=== PATIENT | male | born 1935 | race Caucasian/White ===

== ENCOUNTER 2017-09-08 02:50 | Inpatient (IN) ==
[2017-09-08 03:18] VITALS: RESP 18
--- NOTE | 2017-09-08 04:44 | ED ---
HPI General Chief complaint: Head Injury Stated complaint: Flag Trans/Evac Time Seen by Provider: 09/08/17 02:54 History of Present Illness HPI narrative: Patient is a 82-year-old male who fell today and has facial fractures they are reporting that he is LeFort's with nasal fractures as well as mandible fractures maxillary fractures transferred from an outside hospital Dr. Kumar the trauma surgeon spoke to them and they accepted the transfer patient is here he is only complaining of pain but refuses pain medication his tetanus is up-to-date reviewing the literature he did not get Ancef at the other hospital I will give him Ancef I will do the preop labs and admit him to Dr. HAQUE of the trauma surgery for ENT or oral maxillofacial surgery in the a.m. Related Data Home Medications Medication Instructions Recorded Confirmed pravastatin 20 mg PO DAILY 09/08/17 09/08/17 Previous Rx's Medication Instructions Recorded acetaminophen [Tylenol] 650 mg PO Q4H PRN #30 cap 09/08/17 chlorhexidine gluconate 15 ml PO BID #1 bottle 09/08/17 Allergies Allergy/AdvReac Type Severity Reaction Status Date / Time No Known Allergies Allergy Unverified 09/08/17 03:09 Review of Systems Except as stated in HPI: all other systems reviewed are negative [facility] Medical History Medical History C1 cervical fracture (Acute) Coronary artery disease (Acute) Hypertension (Acute) Social History Social History Substance History: No History of Abuse Second Hand Smoke Exposure: No Smoking Status: Never smoker How Often Do You Have a Drink Containing Alcohol: Monthly or less Recent Travel in [facility] within the Last 8 Weeks: No Recent Out of Country Travel within the Last 8 Weeks: No Immunization History Tetanus Immunization: <5 Years Exam Narrative Exam Narrative: GENERAL: SKIN: Warm and dry. HEAD: Trauma to face swollen left periobital area and nose with dried blood bilateral NAres ENT: blood and swollen nose bridge and nares dried blood bilateral EYES Extraoccular EOMI mild injected left sclera CARDIOVASCULAR: Regular rate and rhythm. RESPIRATORY: No accessory muscle use. Clear to auscultation. Breath sounds equal bilaterally. GASTROINTESTINAL: Abdomen soft, non-tender, nondistended. Hepatic and splenic margins not palpable. MUSCULOSKELETAL: Extremities without clubbing, cyanosis, or edema. No obvious deformities. NEUROLOGICAL: Awake and alert. No obvious cranial nerve deficits. Motor grossly within normal limits. Five out of 5 muscle strength in the arms and legs. Normal speech. PSYCHIATRIC: Appropriate mood and affect; insight and judgment normal. Course Initial Documented Vital Signs Temperature 98.2 F 09/08/17 02:59 Respiratory Rate 18 09/08/17 02:59 Blood Pressure 180/71 H 09/08/17 02:59 Pulse Oximetry 97 09/08/17 02:59 Last Documented Vital Signs Temperature 97.9 F 09/08/17 07:47 Pulse Rate 84 09/08/17 07:47 Respiratory Rate 18 09/08/17 07:47 Blood Pressure 165/74 H 09/08/17 07:47 Pulse Oximetry 96 09/08/17 07:47 Medical Decision Making Lab Data Result diagrams: 09/08/17 04:49 09/08/17 04:49 Lab Results 09/08/17 09/08/17 09/08/17 Range/Units 04:49 04:49 04:49 WBC 7.2 (4.0-11.0) th/mm3 RBC 4.63 (4.50-5.90) mil/mm3 Hgb 14.6 (13.0-17.0) gm/dL Hct 40.2 (39.0-51.0) % MCV 86.8 (80.0-100.0) fL MCH 31.5 (27.0-34.0) pg MCHC 36.3 H (32.0-36.0) % RDW 14.7 (11.6-17.2) % Plt Count 176 (150-450) th/mm3 MPV 8.7 (7.0-11.0) fL Prelim Diff (Auto) Slide review pending Neut % (Auto) 70.7 H (16.0-70.0) % Lymph % (Auto) 14.5 (9.0-44.0) % [place] % (Auto) 13.8 H (0.0-8.0) % Eos % (Auto) 0.7 (0.0-4.0) % Baso % (Auto) 0.3 (0.0-2.0) % Neut # (Auto) 5.1 (1.8-7.7) th/mm3 Lymph # (Auto) 1.0 (1.0-4.8) th/mm3 [place] # (Auto) 1.0 H (0.0-0.9) th/mm3 Eos # (Auto) 0.1 (0.0-0.4) th/mm3 Baso # (Auto) 0.0 (0.0-0.2) th/mm3 WBC Differential . Differential Comment . Platelet Estimate Normal (Normal) Platelet Morphology Normal (Normal) RBC Morphology Normal (Normal) PT 10.8 (9.8-11.6) sec INR 1.1 Ratio Sodium 137 (136-145) meq/L Potassium 4.3 (3.5-5.1) meq/L Chloride 104 (98-107) meq/L Carbon Dioxide 22.5 (21.0-32.0) meq/L Anion Gap 11 (5-15) meq/L BUN 18 (7-18) mg/dL Creatinine 0.93 (0.60-1.30) mg/dL Estimated GFR 78 L (>89) mL/min Random Glucose 122 H (74-106) mg/dL Calcium 9.0 (8.5-10.1) mg/dL Total Bilirubin 1.0 (0.2-1.0) mg/dL AST 45 H (15-37) U/L ALT 22 (12-78) U/L Alkaline Phosphatase 97 (45-117) U/L Total Protein 8.1 (6.4-8.2) g/dL Albumin 4.0 (3.4-5.0) g/dL Blood Type Blood Type Recheck Antibody Screen 09/08/17 Range/Units 04:49 WBC (4.0-11.0) th/mm3 RBC (4.50-5.90) mil/mm3 Hgb (13.0-17.0) gm/dL Hct (39.0-51.0) % MCV (80.0-100.0) fL MCH (27.0-34.0) pg MCHC (32.0-36.0) % RDW (11.6-17.2) % Plt Count (150-450) th/mm3 MPV (7.0-11.0) fL Prelim Diff (Auto) Neut % (Auto) (16.0-70.0) % Lymph % (Auto) (9.0-44.0) % [place] % (Auto) (0.0-8.0) % Eos % (Auto) (0.0-4.0) % Baso % (Auto) (0.0-2.0) % Neut # (Auto) (1.8-7.7) th/mm3 Lymph # (Auto) (1.0-4.8) th/mm3 [place] # (Auto) (0.0-0.9) th/mm3 Eos # (Auto) (0.0-0.4) th/mm3 Baso # (Auto) (0.0-0.2) th/mm3 WBC Differential Differential Comment Platelet Estimate (Normal) Platelet Morphology (Normal) RBC Morphology (Normal) PT (9.8-11.6) sec INR Ratio Sodium (136-145) meq/L Potassium (3.5-5.1) meq/L Chloride (98-107) meq/L Carbon Dioxide (21.0-32.0) meq/L Anion Gap (5-15) meq/L BUN (7-18) mg/dL Creatinine (0.60-1.30) mg/dL Estimated GFR (>89) mL/min Random Glucose (74-106) mg/dL Calcium (8.5-10.1) mg/dL Total Bilirubin (0.2-1.0) mg/dL AST (15-37) U/L ALT (12-78) U/L Alkaline Phosphatase (45-117) U/L Total Protein (6.4-8.2) g/dL Albumin (3.4-5.0) g/dL Blood Type O Negative Blood Type Recheck Required Antibody Screen Negative Discharge Plan Discharge Disposition Patient Disposition: 01 Discharge Home Discharge Condition Condition: Stable Discharge Order Discharge Orders: Discharge Order (Routine); Ordered 09/08/17 Ordered By: Brook Scherer Physicians Team ED Provider: Aaron Sims Primary Care Provider: UNKNOWN, Attending Provider: Alejandro Haque Other Providers: Zackary Rios ; Alejandro Haque ; [employer] [facility] ; Vincent Love ; Myla Ross ; Kush Moffett ; Bekah Cooper ; Jonathan Almanzar ; Brook Scherer ; Noah Barton Status ED Status: Left Department Discharge Information Discharge Date/Time: 09/08/17 07:25
[2017-09-08 05:01] LABS: Baso % (Auto) 0.3 % (0.0-2.0); Eos # (Auto) 0.1 th/mm3 (0.0-0.4); Eos % (Auto) 0.7 % (0.0-4.0); Hematocrit 40.2 % (39.0-51.0); Hemoglobin 14.6 gm/dL (13.0-17.0); Lymph % (Auto) 14.5 % (9.0-44.0); Mean Corpuscular Hemoglobin 31.5 pg (27.0-34.0); Mean Corpuscular Volume 86.8 fL (80.0-100.0); Mean Platelet Volume 8.7 fL (7.0-11.0); Mono % (Auto) 13.8 % (0.0-8.0); Neut # (Auto) 5.1 th/mm3 (1.8-7.7); Neut % (Auto) 70.7 % (16.0-70.0); Platelet Count 176 th/mm3 (150-450); Red Blood Count 4.63 mil/mm3 (4.50-5.90); Red Cell Distribution Width 14.7 % (11.6-17.2); White Blood Count 7.2 th/mm3 (4.0-11.0)
[2017-09-08 05:04] LABS: Mean Corpuscular HGB Conc 36.3 % (32.0-36.0)
[2017-09-08 05:11] LABS: INR 1.1 Ratio; Prothrombin Time 10.8 sec (9.8-11.6)
[2017-09-08 05:16] LABS: Alanine Aminotransferase 22 U/L (12-78)
[2017-09-08 05:19] LABS: Alkaline Phosphatase 97 U/L (45-117); Total Protein 8.1 g/dL (6.4-8.2)
[2017-09-08 05:22] LABS: Anion Gap 11 meq/L (5-15); Aspartate Aminotransferase 45 U/L (15-37); Blood Urea Nitrogen 18 mg/dL (7-18); Carbon Dioxide 22.5 meq/L (21.0-32.0); Chloride 104 meq/L (98-107); Glomerular Filtration Rate 78 mL/min (>89); Glucose,Random 122 mg/dL (74-106); Potassium 4.3 meq/L (3.5-5.1); Sodium 137 meq/L (136-145)
[2017-09-08 05:43] LABS: Platelet Estimate Normal (Normal); Platelet Morphology Normal (Normal)
[2017-09-08 05:44] LABS: RBC Morphology Normal (Normal)
[2017-09-08] MEDS ORDERED: Acetaminophen 325 MG Tablet PO PRN (05:49)
[2017-09-08] MEDS ORDERED: Morphine Sulfate Inj 2 MG/ML Vial IV.PUSH PRN (05:57)
[2017-09-08] MEDS ORDERED: Dextrose 50% in Water 50 ML Vial IV.PUSH PRN (06:59)
[2017-09-08] MEDS ORDERED: Pantoprazole Inj 40 MG Vial IV.PUSH SCH (07:00)
[2017-09-08] MEDS ORDERED: Sod Chloride 0.9% Inj 1,000 ML IV.CONT SCH (07:00)
--- NOTE | 2017-09-08 10:14 | P.CON ---
History of Present Illness Service: Oral & Maxillofacial Surgery Consult date: 09/08/17 Requesting Physician: Aaron Sims Reason for Consult: Facial fractures Primary Care Provider: UNKNOWN Chief Complaint: Facial fractures History of Present Illness: 82-year-old male with a history of coronary artery disease who presents after a mechanical fall on 09/07/2017 approximately 2:00 PM. Patient reports that he was not watching where he was walking after leaving his car and tripped and fell on his face. He denies any significant loss of consciousness. He reports mild oozing from his nose. He denies any changes in his vision, nausea, dizziness, headaches. He denies any numbness in his face. He denies any difficulty breathing through his nose. He denies any pain in his upper jaw. He reports he wears a maxillary complete denture and an implant supported mandibular denture. Review of Systems Eyes: Denies change in vision, Denies double vision, Denies loss of vision, Denies pain, Denies sensitivity to light Ears, Nose, Mouth, and Throat: Reports nasal discharge, Denies dental pain, Denies facial pain, Denies headache(s), Denies nasal obstruction, Denies sinus pain Cardiovascular: Denies chest pain Respiratory: Denies shortness of breath Gastrointestinal: Denies abdominal pain Neurologic: Denies dizziness, Denies fainting, Denies frequent falls, Denies headache(s), Denies loss of vision PMFSH - History History Provided By: Patient - Medical History Medical History: Medical History (Last Updated 09/08/17 @ 03:54 by Alma Richardson) C1 cervical fracture Coronary artery disease Hypertension - Tobacco History Second Hand Smoke Exposure: No Smoking Status: Never smoker - Alcohol History How Often Do You Have a Drink Containing Alcohol: Monthly or less - Substance Use History Substance History: No History of Abuse - Travel History Recent Travel in the [place] Within the Last 8 Weeks: No Recent Travel Out of the Country Within the Last 8 Weeks: No - Immunization History Tetanus Immunization: <5 Years Medications and Allergies Active Medications: Active Medications Dextrose (D50w Vial) 50 ml IV.PUSH UNSCH PRN PRN Reason: PER HYPOGLYCEMIA PROTOCOL Enalaprilat (Vasotec Inj) 1.25 mg IV.PUSH Q8H PRN PRN Reason: Blood pressure 180/95 Glucagon (Glucagon Inj) 1 mg OTHER PRN PRN PRN Reason: for Hypoglycemia Protocol Sodium Chloride (Ns Inj) 1,000 mls @ 75 mls/hr IV.CONT .[id number] [facility] Last Admin: 09/08/17 09:37 Dose: 75 mls/hr Acetaminophen (Ofirmev Inj) 1,000 mg in 100 mls @ 400 mls/hr IV.SIG Q6H [facility] Stop: 09/09/17 07:59 Last Admin: 09/08/17 09:36 Dose: 400 mls/hr Morphine Sulfate (Morphine Inj) 2 mg IV.PUSH Q3H PRN PRN Reason: PAIN 1-10 AND/OR FEVER >101F Ondansetron HCl (Zofran Inj) 4 mg IV.PUSH Q6H PRN PRN Reason: NAUSEA OR VOMITING Pantoprazole Sodium (Protonix Inj) 40 mg IV.PUSH Q24H [facility] Last Admin: 09/08/17 09:37 Dose: 40 mg Sodium Chloride (Ns Flush) 2 ml IV.FLUSH UNSCH PRN PRN Reason: FLUSH AFTER USING IV ACCESS Allergies Allergy/AdvReac Type Severity Reaction Status Date / Time No Known Allergies Allergy Unverified 09/08/17 03:09 Home Medications Medication Instructions Recorded Confirmed Type pravastatin 20 mg PO DAILY 09/08/17 09/08/17 History Physical Exam Vital signs: Vital Signs 09/08/17 02:59 09/08/17 05:01 09/08/17 07:25 Temperature 98.2 F Pulse Rate 87 Respiratory Rate 18 18 18 Blood Pressure 180/71 H 173/71 H Pulse Oximetry 97 98 09/08/17 07:47 Temperature 97.9 F Pulse Rate 84 Respiratory Rate 18 Blood Pressure 165/74 H Pulse Oximetry 96 Intake & Output 09/07/17 09/08/17 09/08/17 18:59 06:59 18:59 Weight 83.915 kg Narrative: General: Well-developed, comfortable and in no apparent distress. Neurological: Alert, oriented, in NAD. CNV and CNVII intact bilaterally. HEENT: Head/Face: Normocephalic. Scalp nonboggy with no palpable step-offs or deformities. Periorbital ecchymosis bilaterally. Edema in the infraorbital region bilaterally soft, minimally tender to palpation (R>L). Malar prominences symmetric and without deformity. Midface stable. No palpable step- offs along inferior mandibular border. Face symmetric with no lacerations or abrasions. Eyes/Orbits: PERRL. EOMI. Nose: External nose is grossly deviated to the left. Septum deviated to left side. No septal hematoma. No rhinorrhea or epistaxis. Bilateral hemorrhagic crusting around the nares TMJ/Mandible: Bilateral TMJ nontender to palpation. Normal mandibular ROM with no deviations or restrictions with maximum opening, protrusion or lateral excursions. SILAS >4cm. Oral Cavity/Oropharynx: Bilateral buccal mucosal ecchymosis. Hemorrhagic crusting of the palatal vault. No tenderness to palpation over the alveolar ridges. Mucosa pink and well hydrated. Floor of mouth soft. Mandibular upper denture implants in place without tenderness to palpation, no mobility appreciated. Neck: Supple without cervical LAD or thyromegaly. Trachea midline. No cervical spinal tenderness. Cardiovascular: Regular rate. Pulmonary: Normal work of breathing on room air. Extremities: Warm, well perfused. - Additional findings Additional findings: CT maxillofacial reveals a LeFort I fracture, minimally displaced. Nasal septal fracture, bilateral nasal bone fractures with the left lateral nasal bone significantly displaced. Right orbital rim fracture that is nondisplaced. Bilateral anterior maxillary wall fractures. Assessment and Plan - Assessment (1) Nasal bones, closed fracture Code(s): S02.2XXA - Fracture of nasal bones, initial encounter for closed fracture Status: Acute - Plan Recommendations: - Will treat LeFort 1 fracture and maxillary wall fractures non-operatively at this time as there is no gross mobility of the maxilla and the patient is edentulous. - Plan for evaluation after edema has decreased and possible future repair of the nasal bone and septal fractures with closed reduction. No need for emergent intervention. - Please maintain sinus precautions to avoid subcutaneous emphysema. No nose blowing. Sneeze and cough with an open mouth. - Gentle oral hygiene, Chlorhexidine twice daily - Soft diet for the next 6-8 weeks while maxillary fractures heal - Avoid wearing maxillary and mandibular dentures for the next 6 weeks while fractures are healing. Dentures will most likely need to be realigned in the future by dentist - Follow-up in 1 week in the office with me ([facility] [address], ) Thank you for this consultation. Please don't hesitate to contact me at [phone] with any questions or concerns. Noah Barton DDS, MD Discharge Planning: Follow-up in 1 week in the office with me ([facility] [address], )
--- NOTE | 2017-09-08 11:22 | P.DS ---
<Brook Scherer M - Last Filed: 09/08/17 13:23> Date of admission: 09/08/17 06:55 Primary care physician: UNKNOWN Brief History from admission: S/P Fall DS: Diagnosis - Discharge Diagnosis (1) LeFort I fracture Status: Acute (2) Maxillary fracture Status: Acute (3) Orbit fracture, right Status: Acute DS: Medications - Discharge Medications Prescriptions: acetaminophen [Tylenol] 650 mg PO Q4H PRN #30 cap PRN Reason: Pain chlorhexidine gluconate 15 ml PO BID #1 bottle DS: Summary Hospital Course: [place]: Tripped and fell striking his face. No LOC. Trauma transfer. INJURIES: Lefort I fx BILAT nasal bone fxs RIGHT orbital rim fx BILAT maxillary fx PMHx: C1 fx, HTN, CAD Lefort I fx, BILAT nasal fxs, RIGHT orbital rim fx, BILAT maxillary fx OMFS consulted, F/U outpatient Non-operative management Pain control Sinus precautions Chlorhexidine twice daily Soft diet Avoid wearing maxillary and mandibular dentures F/U with PCP in 1 week Plan of care discussed with patient and RN at bedside. Collaborating Trauma surgeon agrees with plan. Case management consulted to assist with discharge planning. Patient is clear from trauma surgery standpoint to safely DC home. - Time Spent with Patient Total time spent providing and/or coordinating discharge services: Greater than 30 minutes - Quality: VTE Deep Vein Thrombosis/Pulmonary Embolism Present on Admission: Yes Exam Vital signs: Vital Signs 09/08/17 02:59 09/08/17 05:01 09/08/17 07:25 Temperature 98.2 F Pulse Rate 87 Respiratory Rate 18 18 18 Blood Pressure 180/71 H 173/71 H Pulse Oximetry 97 98 09/08/17 07:47 Temperature 97.9 F Pulse Rate 84 Respiratory Rate 18 Blood Pressure 165/74 H Pulse Oximetry 96 Intake & Output 09/07/17 09/08/17 09/08/17 18:59 06:59 18:59 Weight 83.915 kg Narrative: GENERAL: 82 year old well-nourished, well developed male sitting up in bed. SKIN: Warm and dry. Right facial edema noted. HEAD: Normocephalic. EYES: Pupils equal and round. RIGHT periorbital edema and ecchymosis. ENT: Dried blood noted in bilateral nares. Nasal septum deviated to the left. Mucous membranes pink and moist. NECK: Trachea midline. No JVD. CARDIOVASCULAR: Regular rate and rhythm. RESPIRATORY: No accessory muscle use. Lungs clear to auscultation. Breath sounds equal bilaterally. GASTROINTESTINAL: Abdomen soft, non-tender, nondistended. + BS. MUSCULOSKELETAL: Extremities without cyanosis, or edema. MAEW, + perfused NEUROLOGICAL: Awake and alert. Normal speech. Results Procedures completed during hospitalization: NA Labs on day of discharge: Labs from last 24 hours 09/08/17 09/08/17 09/08/17 04:49 04:49 04:49 WBC RBC Hgb Hct MCV MCH MCHC RDW Plt Count MPV Prelim Diff (Auto) Neut % (Auto) Lymph % (Auto) [place] % (Auto) Eos % (Auto) Baso % (Auto) Neut # (Auto) Lymph # (Auto) [place] # (Auto) Eos # (Auto) Baso # (Auto) WBC Differential Differential Comment Platelet Estimate Platelet Morphology RBC Morphology PT 10.8 INR 1.1 Sodium 137 Potassium 4.3 Chloride 104 Carbon Dioxide 22.5 Anion Gap 11 BUN 18 Creatinine 0.93 Estimated GFR 78 L Random Glucose 122 H Calcium 9.0 Total Bilirubin 1.0 AST 45 H ALT 22 Alkaline Phosphatase 97 Total Protein 8.1 Albumin 4.0 Blood Type O Negative Blood Type Recheck Required Antibody Screen Negative 09/08/17 04:49 WBC 7.2 RBC 4.63 Hgb 14.6 Hct 40.2 MCV 86.8 MCH 31.5 MCHC 36.3 H RDW 14.7 Plt Count 176 MPV 8.7 Prelim Diff (Auto) Slide review pending Neut % (Auto) 70.7 H Lymph % (Auto) 14.5 [place] % (Auto) 13.8 H Eos % (Auto) 0.7 Baso % (Auto) 0.3 Neut # (Auto) 5.1 Lymph # (Auto) 1.0 [place] # (Auto) 1.0 H Eos # (Auto) 0.1 Baso # (Auto) 0.0 WBC Differential . Differential Comment . Platelet Estimate Normal Platelet Morphology Normal RBC Morphology Normal PT INR Sodium Potassium Chloride Carbon Dioxide Anion Gap BUN Creatinine Estimated GFR Random Glucose Calcium Total Bilirubin AST ALT Alkaline Phosphatase Total Protein Albumin Blood Type Blood Type Recheck Antibody Screen <Alejandro Berry - Last Filed: 09/09/17 09:27> Date of admission: 09/08/17 06:55 Primary care physician: UNKNOWN DS: Summary - Time Spent with Patient Total time spent providing and/or coordinating discharge services: Discharge Plan - Discharge Order Discharge Orders: Discharge Order (Routine); Ordered 09/08/17 Ordered By: Brook Scherer - Physicians Team Primary Care Provider: UNKNOWN, Attending Provider: Alejandro Berry
--- NOTE | 2017-09-08 11:24 | P.HPCC ---
History of Present Illness Primary Care Physician: UNKNOWN Chief Complaint: Facial fractures History of Present Illness: 82-year-old who was taken to an outside hospital after he tripped and fell striking his face on the ground. He was found to have a LeFort fractures with associated nasal bone fractures. There is no reported blood thinners CT scan of his head was negative and he had no neck pain. He was transferred here for evaluation by facial surgeon. Patient denies loss of consciousness no complaints of pain anywhere else. Inpatient Certification: I certify that the inpatient services were ordered in accordance with Medicare regulations governing the order. This includes certification that hospital inpatient services are reasonable and necessary and in the case of services not specified as inpatient-only under 42 CFR 419.22(n), that they are appropriately provided as inpatient services in accordance to with the 2-midnight benchmark under 43 CFR 412.3(e) Estimated Total Length of Stay (Days): 3 Plans for Post Hospital Care: Home Review of Systems All other systems reviewed negative except as stated in HPI [facility] - History History Provided By: Patient - Medical History Medical History: Medical History (Last Updated 09/08/17 @ 03:54 by Alma Richardson) C1 cervical fracture Coronary artery disease Hypertension - Tobacco History Second Hand Smoke Exposure: No Smoking Status: Never smoker - Alcohol History How Often Do You Have a Drink Containing Alcohol: Monthly or less - Substance Use History Substance History: No History of Abuse - Travel History Recent Travel in the [place] Within the Last 8 Weeks: No Recent Travel Out of the Country Within the Last 8 Weeks: No - Immunization History Tetanus Immunization: <5 Years Medications and Allergies Active Medications: Active Medications Dextrose (D50w Vial) 50 ml IV.PUSH UNSCH PRN PRN Reason: PER HYPOGLYCEMIA PROTOCOL Enalaprilat (Vasotec Inj) 1.25 mg IV.PUSH Q8H PRN PRN Reason: Blood pressure 180/95 Glucagon (Glucagon Inj) 1 mg OTHER PRN PRN PRN Reason: for Hypoglycemia Protocol Sodium Chloride (Ns Inj) 1,000 mls @ 75 mls/hr IV.CONT .[id number] [facility] Last Admin: 09/08/17 09:37 Dose: 75 mls/hr Acetaminophen (Ofirmev Inj) 1,000 mg in 100 mls @ 400 mls/hr IV.SIG Q6H [facility] Stop: 09/09/17 07:59 Last Admin: 09/08/17 09:36 Dose: 400 mls/hr Morphine Sulfate (Morphine Inj) 2 mg IV.PUSH Q3H PRN PRN Reason: PAIN 1-10 AND/OR FEVER >101F Ondansetron HCl (Zofran Inj) 4 mg IV.PUSH Q6H PRN PRN Reason: NAUSEA OR VOMITING Pantoprazole Sodium (Protonix Inj) 40 mg IV.PUSH Q24H [facility] Last Admin: 09/08/17 09:37 Dose: 40 mg Sodium Chloride (Ns Flush) 2 ml IV.FLUSH UNSCH PRN PRN Reason: FLUSH AFTER USING IV ACCESS Allergies Allergy/AdvReac Type Severity Reaction Status Date / Time No Known Allergies Allergy Unverified 09/08/17 03:09 Home Medications Medication Instructions Recorded Confirmed Type pravastatin 20 mg PO DAILY 09/08/17 09/08/17 History Results - Labs CBC & Chem 7: 09/08/17 04:49 09/08/17 04:49 Labs: Short CBC 09/08/17 Range/Units 04:49 WBC 7.2 (4.0-11.0) th/mm3 Hgb 14.6 (13.0-17.0) gm/dL Hct 40.2 (39.0-51.0) % Plt Count 176 (150-450) th/mm3 BMP 09/08/17 04:49 Sodium 137 Potassium 4.3 Chloride 104 Carbon Dioxide 22.5 BUN 18 Creatinine 0.93 Calcium 9.0 Liver Function 09/08/17 Range/Units 04:49 Total Bilirubin 1.0 (0.2-1.0) mg/dL AST 45 H (15-37) U/L ALT 22 (12-78) U/L Alkaline Phosphatase 97 (45-117) U/L Albumin 4.0 (3.4-5.0) g/dL Exam Vital signs: Vital Signs 09/08/17 02:59 09/08/17 05:01 09/08/17 07:25 Temperature 98.2 F Pulse Rate 87 Respiratory Rate 18 18 18 Blood Pressure 180/71 H 173/71 H Pulse Oximetry 97 98 09/08/17 07:47 Temperature 97.9 F Pulse Rate 84 Respiratory Rate 18 Blood Pressure 165/74 H Pulse Oximetry 96 Intake & Output 09/07/17 09/08/17 09/08/17 18:59 06:59 18:59 Weight 83.915 kg - Constitutional no acute distress - Routine HEENT Exam Head: Present: normocephalic Eye: Present: EOMI, PERRL, scleral injection (Right), periorbital ecchymosis, periorbital swelling, periorbital tenderness. Absent: exophthalmos, proptosis - Routine Neck Exam Present: trachea midline. Absent: tenderness, tracheal deviation - Routine Respiratory Exam Present: CTA bilaterally - Routine Cardiovascular Exam Present: RRR - Routine Abdominal Exam Present: soft. Absent: tenderness, distended - Routine Extremities Exam Absent: cyanosis, clubbing, edema - Routine Skin Exam Present: dry, warm - Routine Neurological Exam Present: alert, oriented X3, CN II-XII intact Caprini VTE Risk Assessment Caprini VTE Risk Assessment: No/Low Risk (score <= 1) Caprini Risk Assessment Model: Point Value = 1 Point Value = 2 Point Value = 3 Point Value = 5 Age 41-60 Minor surgery BMI > 25 kg/m2 Swollen legs Varicose veins or History of unexplained or recurrent spontaneous Oral contraceptives or hormone replacement Sepsis (< 1 month) Serious lung disease, including pneumonia (< 1 month) Abnormal pulmonary function Acute myocardial infarction Congestive heart failure (< 1 month) History of inflammatory bowel disease Medical patient at bed rest Age 61-74 Arthroscopic surgery Major open surgery (> 45 min) Laparoscopic surgery (> 45 min) Malignancy Confined to bed (> 72 hours) Immobilizing plaster cast Central venous access Age >= 75 History of VTE Family history of VTE Factor V Leiden Prothrombin [id number] Lupus anticoagulant Anticardiolipin antibodies Elevated serum homocysteine Heparin-induced thrombocytopenia Other congenital or acquired thrombophilia Stroke (< 1 month) Elective arthroplasty Hip, pelvis, or leg fracture Acute spinal cord injury (< 1 month) Prophylaxis Regimen: Total Risk Factor Score Risk Level Prophylaxis Regimen 0-1 Low Early ambulation 2 Moderate Order ONE of the following: *Sequential Compression Device (SCD) *Heparin 5000 units SQ BID 3-4 Higher Order ONE of the following medications: *Heparin 5000 units SQ TID *Enoxaparin/Lovenox 40 mg SQ daily (WT < 150 kg, CrCl > 30 mL/min) *Enoxaparin/Lovenox 30 mg SQ daily (WT < 150 kg, CrCl > 10-29 mL/min) *Enoxaparin/Lovenox 30 mg SQ BID (WT < 150 kg, CrCl > 30 mL/min) AND/OR *Sequential Compression Device (SCD) 5 or more Highest Order ONE of the following medications: *Heparin 5000 units SQ TID (Preferred with Epidurals) *Enoxaparin/Lovenox 40 mg SQ daily (WT < 150 kg, CrCl > 30 mL/min) *Enoxaparin/Lovenox 30 mg SQ daily (WT < 150 kg, CrCl > 10-29 mL/min) *Enoxaparin/Lovenox 30 mg SQ BID (WT < 150 kg, CrCl > 30 mL/min) AND *Sequential Compression Device (SCD) Assessment and Plan - Assessment and Plan Plan: Patient is to be admitted to the trauma service for evaluation by OMFS. H&P: Quality - VTE Deep Vein Thrombosis/Pulmonary Embolism Present on Admission: Yes
[2017-09-11 18:57] VITALS: BP 165/74; TEMP 97.9; O2SAT 96
[2017-09-11 19:02] VITALS: PULSE 84
== END 2017-09-08 14:47 | disposition home or self-care (01) ==
LOC: NEPE 02:50 → NEDA 02:50 → NEPGCP 07:26
PROVIDERS: ADMIT Surgery; ATTEND Surgery